=== PATIENT | female | born 1945 | race Caucasian/White ===

== ENCOUNTER 2020-05-17 07:24 | Emergency (ER) | payer MEDICARE, OTHER ==
--- NOTE | 2020-05-17 07:52 | EDM.PDOC ---
ED HPI GENERAL MEDICAL PROBLEM - General Chief Complaint: Cardiovascular Problem Stated Complaint: SENT FROM [facility] Time Seen by Provider: 05/17/20 07:35 Source of Information: Reports: Patient, RN Notes Reviewed - History of Present Illness INITIAL COMMENTS - FREE TEXT/NARRATIVE: 74 yr old female that dropped her BP getting a lexiscan. She dropped her BP down to the 70's systolic shortly after injection and than 1 reading down to the 60's. No report of arrrythmia. No chest pain. She did get mildly short of breath. No 20 minutes later she feels back to normal and BP is back to the teens systolic. She does have hx of CAD with ME about 1 yr ago. She is on meds for Htn, did take them already this morning. Has not had anything to eat and very little fluid intake. - Related Data Allergies Allergy/AdvReac Type Severity Reaction Status Date / Time Penicillins Allergy Intermediate Difficulty Verified 05/17/20 07:31 Swallowing Past Medical History HEENT History: Reports: Impaired Vision - Past Surgical History Other HEENT Surgeries/Procedures: wears glasses Social & Family History - Tobacco Use Tobacco Use Status *Q: Never Tobacco User ED ROS GENERAL - Review of Systems Review Of Systems: See Below Constitutional: Denies: Fever, Chills, Diaphoresis HEENT: Reports: No Symptoms Respiratory: Denies: Shortness of Breath Cardiovascular: Denies: Chest Pain GI/Abdominal: Denies: Abdominal Pain, Nausea, Vomiting Musculoskeletal: Denies: Neck Pain, Shoulder Pain, Arm Pain Skin: Reports: No Symptoms Neurological: Reports: Dizziness (gone) ED EXAM, GENERAL - Physical Exam Exam: See Below Exam Limited By: No Limitations General Appearance: Alert, No Apparent Distress Head: Atraumatic Neck: Supple Respiratory/Chest: No Respiratory Distress, Lungs Clear, Normal Breath Sounds Cardiovascular: Regular Rate, Rhythm GI/Abdominal: Soft, Non-Tender. No: Guarding Extremities: Normal Inspection, Normal Range of Motion. No: Pedal Edema, Leg Pain, Increased Warmth, Redness Neurological: Alert, Oriented, No Motor/Sensory Deficits Skin Exam: Warm, Dry, Normal Color #1 Interpretation EKG Date: 05/17/20 Rhythm: NSR Rate (Beats/Min): 77 [place]: Normal P-Wave: Present QRS: Normal ST-T: Normal QT: Normal Course - Vital Signs Last Recorded V/S: Last Vital Signs Temp 97.8 F 05/17/20 07:27 Pulse 82 05/17/20 07:46 Resp 20 05/17/20 07:46 BP 141/64 H 05/17/20 07:46 Pulse Ox 98 05/17/20 07:46 - Orders/Labs/Meds Orders: Active Orders 24 hr Category Date Time Status EKG 12 Lead [EKG Documentation Completion] [RC] STAT Care 05/17/20 07:50 Active Labs: Laboratory Tests 05/17/20 05/17/20 Range/Units 07:50 07:50 WBC 7.15 (3.98-10.04) K/mm3 RBC 3.38 L (3.98-5.22) M/mm3 Hgb 10.3 L (11.2-15.7) gm/dl Hct 33.0 L (34.1-44.9) % MCV 97.6 H (79.4-94.8) fl MCH 30.5 (25.6-32.2) pg MCHC 31.2 L (32.2-35.5) g/dl RDW Std Deviation 48.0 H (36.4-46.3) fL Plt Count 322 (182-369) K/mm3 MPV 8.7 L (9.4-12.3) fl Neut % (Auto) 65.4 (34.0-71.1) % Lymph % (Auto) 19.6 (19.3-51.7) % [place] % (Auto) 9.5 (4.7-12.5) % Eos % (Auto) 4.5 (0.7-5.8) Baso % (Auto) 0.7 (0.1-1.2) % Neut # (Auto) 4.68 (1.56-6.13) K/mm3 Lymph # (Auto) 1.40 (1.18-3.74) K/mm3 [place] # (Auto) 0.68 H (0.24-0.36) K/mm3 Eos # (Auto) 0.32 (0.04-0.36) K/mm3 Baso # (Auto) 0.05 (0.01-0.08) K/mm3 Sodium 139 (136-145) mEq/L Potassium 4.3 (3.5-5.1) mEq/L Chloride 103 (98-107) mEq/L Carbon Dioxide 26 (21-32) mEq/L Anion Gap 14.3 (5-15) BUN 23 H (7-18) mg/dL Creatinine 1.2 H (0.55-1.02) mg/dL Est Cr Clr Drug Dosing 36.05 mL/min Estimated GFR (MDRD) 44 (>60) mL/min BUN/Creatinine Ratio 19.2 H (14-18) Glucose 97 (83-115) mg/dL Calcium 9.0 (8.5-10.1) mg/dL Total Bilirubin 0.3 (0.2-1.0) mg/dL AST 20 (15-37) U/L ALT 27 (14-59) U/L Alkaline Phosphatase 81 (46-116) U/L Total Protein 6.4 (6.4-8.2) g/dl Albumin 3.4 (3.4-5.0) g/dl Globulin 3.0 gm/dL Albumin/Globulin Ratio 1.1 (1-2) - Re-Assessments/Exams Free Text/Narrative Re-Assessment/Exam: 05/17/20 08:56 BP now in the 140's. She has been drinking water. She continues to have no further sx. Hgb 10.3. No sure if she has hx of anemia. She states "my daughter is a doctor", will follow up with her. Discharge instr. as documented. Departure - Departure Time of Disposition: 08:49 Disposition: Home, Self-Care 01 Condition: Fair Clinical Impression: Hypotension after procedure Anemia Qualifiers: Anemia type: unspecified type Qualified Code(s): D64.9 - Anemia, unspecified Instructions: Hypotension, [id number] Referrals: Carolina Iniguez NP [Primary Care Provider] - Forms: ED Department Discharge Additional Instructions: Continue current medications. Your EKG as normal. Your Hbg was somewhat low at 10.3. The remainder of your labs were all relatively normal. Discuss you mild anemia with your regular provider. Follow up with your Room Service Food [employer] as planned. Sepsis Event Note (ED) - Evaluation Sepsis Screening Result: No Definite Risk - Focused Exam Vital Signs: Vital Signs Temp Pulse Resp BP Pulse Ox 05/17/20 07:46 82 20 141/64 H 98 05/17/20 07:27 97.8 F 88 16 118/68 98 - My Orders Last 24 Hours: My Active Orders 05/17/20 07:50 EKG 12 Lead [EKG Documentation Completion] [RC] STAT - Assessment/Plan Last 24 Hours: My Active Orders 05/17/20 07:50 EKG 12 Lead [EKG Documentation Completion] [RC] STAT
== END 2020-05-17 08:56 | disposition home or self-care (01) ==
LOC: JD.ED 07:24
DX: I95.81 Postprocedural hypotension (principal); D64.9 Anemia, unspecified; R06.02 Shortness of breath; I25.10 Atherosclerotic heart disease of native coronary artery without angina pectoris; I25.2 Old myocardial infarction; Z88.0 Allergy status to penicillin; I21.4 Non-ST elevation (NSTEMI) myocardial infarction
CPT/HCPCS: 36415; 78452; 80053; 85025; 93005; 93017; 99285; A9500; J2785; 93010; 99283

== ENCOUNTER 2020-09-18 12:13 | Observation (INO) | payer MEDICARE, OTHER ==
--- NOTE | 2020-09-18 12:31 | EDM.PDOC ---
ED HPI GENERAL MEDICAL PROBLEM - General Chief Complaint: Lower Extremity Injury/Pain Stated Complaint: INFECTED WOUND-RT LEG Time Seen by Provider: 09/18/20 12:31 Source of Information: Reports: Patient, RN Notes Reviewed - History of Present Illness INITIAL COMMENTS - FREE TEXT/NARRATIVE: 75 yr female has been sent here from [place] with concern about infected R lower leg. She scraped her leg on a metal picnic stable brace about a week ago with deep abrasion adn skin flap laceration. She states it has had drainage for many days, has been watching, waiting for it to get better but has been getting much worse with worsening drainage, swelling, localized erythema that has been spreading. No fever or chills. She is not diabetic. Right Lower Leg Pain Score (Numeric/FACES): 9 - Related Data Allergies Allergy/AdvReac Type Severity Reaction Status Date / Time Penicillins Allergy Intermediate Difficulty Verified 09/18/20 15:18 Swallowing Home Meds: Home Meds Aspirin 81 mg PO DAILY 09/18/20 [History] Calcium Citrate/Vitamin D3 [Calcium Citrate - Vit D Caplet] 1 each PO TID 0 09/18/20 [History] Divalproex Sodium [Depakote ER] 250 mg PO DAILY 09/18/20 [History] Folic Acid 1 mg PO DAILY 09/18/20 [History] Furosemide [Lasix] 10 mg PO DAILY 09/18/20 [History] LORazepam [Ativan] 0.5 mg PO DAILY 09/18/20 [History] Levothyroxine [Synthroid] 100 mcg PO ACBREAKFAST 09/18/20 [History] Magnesium Oxide [Magnesium] 400 mg PO DAILY 09/18/20 [History] Meloxicam 15 mg PO DAILY 09/18/20 [History] Metoprolol Succinate 50 mg PO DAILY 09/18/20 [History] Omeprazole 20 mg PO BID 09/18/20 [History] amLODIPine [Norvasc] 5 mg PO DAILY 09/18/20 [History] atorvaSTATin [Lipitor] 80 mg PO BEDTIME 09/18/20 [History] Divalproex Sodium [Depakote] 250 mg PO DAILY 09/19/20 [History] clindamycin HCL [Cleocin HCl] 450 mg PO TID #72 capsule 09/19/20 [Rx] Past Medical History HEENT History: Reports: Impaired Vision - Past Surgical History Other HEENT Surgeries/Procedures: wears glasses Review of Systems - Review of Systems Review Of Systems: See Below Constitutional: Denies: Chills, Fever Mouth/Throat: Reports: No Symptoms Respiratory: Denies: Shortness of Breath Cardiovascular: Denies: Chest Pain GI/Abdominal: Denies: Abdominal Pain, Nausea Musculoskeletal: Reports: Leg Pain Skin: Reports: Erythema Neurological: Denies: Numbness, Tingling, Weakness ED EXAM, GENERAL - Physical Exam Exam: See Below General Appearance: Alert, No Apparent Distress Eye Exam: Bilateral Eye: PERRL Throat/Mouth: Normal Inspection Head: Atraumatic Neck: Supple Respiratory/Chest: No Respiratory Distress, Lungs Clear, Normal Breath Sounds Cardiovascular: Regular Rate, Rhythm GI/Abdominal: Soft, Non-Tender Extremities: Other (open infected wound L lower ant. leg with purulent drainage present. Surrounding warmth, erythema,tenderness lower leg, ankle, and proximal foot) Course - Vital Signs Last Recorded V/S: Last Vital Signs Temp 97.5 F 09/19/20 07:38 Pulse 71 09/19/20 08:33 Resp 20 09/19/20 07:38 BP 141/64 H 09/19/20 08:33 Pulse Ox 93 L 09/19/20 07:38 - Orders/Labs/Meds Labs: Laboratory Tests 09/18/20 09/18/20 09/18/20 Range/Units 12:55 12:55 12:55 WBC 9.07 (3.98-10.04) K/mm3 RBC 3.38 L (3.98-5.22) M/mm3 Hgb 10.9 L (11.2-15.7) gm/dl Hct 32.6 L (34.1-44.9) % MCV 96.4 H (79.4-94.8) fl MCH 32.2 (25.6-32.2) pg MCHC 33.4 (32.2-35.5) g/dl RDW Std Deviation 45.1 (36.4-46.3) fL Plt Count 318 (182-369) K/mm3 MPV 9.0 L (9.4-12.3) fl Neut % (Auto) 70.2 (34.0-71.1) % Lymph % (Auto) 13.8 L (19.3-51.7) % [place] % (Auto) 10.7 (4.7-12.5) % Eos % (Auto) 4.7 (0.7-5.8) Baso % (Auto) 0.6 (0.1-1.2) % Neut # (Auto) 6.37 H (1.56-6.13) K/mm3 Lymph # (Auto) 1.25 (1.18-3.74) K/mm3 [place] # (Auto) 0.97 H (0.24-0.36) K/mm3 Eos # (Auto) 0.43 H (0.04-0.36) K/mm3 Baso # (Auto) 0.05 (0.01-0.08) K/mm3 Manual Slide Review Abnormal smear Sodium 133 L (136-145) mEq/L Potassium 4.8 (3.5-5.1) mEq/L Chloride 97 L (98-107) mEq/L Carbon Dioxide 28 (21-32) mEq/L Anion Gap 12.8 (5-15) BUN 21 H (7-18) mg/dL Creatinine 1.5 H (0.55-1.02) mg/dL Est Cr Clr Drug Dosing 27.22 mL/min Estimated GFR (MDRD) 34 (>60) mL/min BUN/Creatinine Ratio 14.0 (14-18) Glucose 95 (70-99) mg/dL Calcium 9.4 (8.5-10.1) mg/dL Total Bilirubin 0.3 (0.2-1.0) mg/dL AST 28 (15-37) U/L ALT 30 (14-59) U/L Alkaline Phosphatase 83 (46-116) U/L C-Reactive Protein 3.2 H* (<1.0) mg/dL Total Protein 7.2 (6.4-8.2) g/dl Albumin 3.7 (3.4-5.0) g/dl Globulin 3.5 gm/dL Albumin/Globulin Ratio 1.1 (1-2) Meds: Medications Discontinued Medications Generic Name Dose Route Start Last Admin Trade Name Freq PRN Reason Stop Dose Admin Acetaminophen 650 mg 09/18/20 15:45 09/18/20 20:27 Acetaminophen 325 Mg Tab PO 650 mg Q4H PRN Administration Pain (Mild 1-3)/fever Amlodipine Besylate 5 mg 09/19/20 09:00 09/19/20 08:33 Amlodipine 5 Mg Tab PO 5 mg DAILY JEREMY Administration Aspirin 81 mg 09/19/20 09:00 09/19/20 08:32 Aspirin 81 Mg Tab.Ec PO 81 mg DAILY JEREMY Administration Bupivacaine HCl/Epinephrine Bitart Confirm 09/18/20 13:59 09/18/20 14:17 Bupivacaine 0.5%/Epinephrine 1:200,000 50 Ml Mdv Administered 09/18/20 14:00 20 ml Dose Administration 50 ml .ROUTE .STK-MED ONE Calcium Carbonate 1 tab 09/19/20 07:00 09/19/20 06:37 Calcium Carbonate/Vitamin D3 600 Mg-200 Units Tab PO Not Given TIDMEALS JEREMY Divalproex Sodium 250 mg 09/19/20 09:00 09/19/20 08:33 Divalproex Sodium Delayed-Release 250 Mg Tab.Cr PO 250 mg DAILY JEREMY Administration Docusate Sodium 100 mg 09/18/20 15:45 Docusate Sodium 100 Mg Cap PO Q12H PRN Constipation Fentanyl Confirm 09/18/20 13:55 Fentanyl 100 Mcg/2 Ml Sdv Administered 09/18/20 13:56 Dose 100 mcg .ROUTE .STK-MED ONE Folic Acid 1 mg 09/19/20 09:00 09/19/20 08:33 Folic Acid 1 Mg Tab PO 1 mg DAILY [facility] Administration Furosemide 10 mg 09/19/20 09:00 09/19/20 08:32 Furosemide 20 Mg Tab PO 10 mg DAILY JEREMY Administration Vancomycin HCl 1 gm/ 250 mls @ 166.667 mls/hr 09/18/20 13:45 09/18/20 13:45 Vancomycin HCl 250 mg/ Sodium IV 09/18/20 15:14 166.667 mls/hr Chloride ONETIME ONE Administration Lidocaine HCl Confirm 09/18/20 13:55 Xylocaine-Mpf 1% Administered 09/18/20 13:56 Dose 4 mls @ as directed .ROUTE .STK-MED ONE Vancomycin HCl 1 gm/ Sodium 250 mls @ 250 mls/hr 09/20/20 14:00 Chloride IV Q48H JEREMY Sodium Chloride 1,000 mls @ 75 mls/hr 09/18/20 17:00 09/18/20 23:50 Normal Saline IV 09/19/20 06:19 75 mls/hr ASDIRECTED JEREMY Administration Levothyroxine Sodium 100 mcg 09/19/20 06:00 09/19/20 06:37 Levothyroxine 100 Mcg Tab PO Not Given ACBREAKFAST JEREMY Lorazepam 0.5 mg 09/19/20 09:00 09/19/20 08:33 Lorazepam 0.5 Mg Tab PO 0.5 mg DAILY JEREMY Administration Magnesium Oxide 400 mg 09/19/20 09:00 09/19/20 08:33 Magnesium Oxide 400 Mg Tab PO 400 mg DAILY JEREMY Administration Meloxicam 15 mg 09/19/20 09:00 09/19/20 08:33 Meloxicam 7.5 Mg Tab PO 15 mg DAILY JEREMY Administration Metoprolol Succinate 50 mg 09/19/20 09:00 09/19/20 08:33 Metoprolol Succinate 50 Mg Tab.Er PO 50 mg DAILY JEREMY Administration Midazolam HCl Confirm 09/18/20 13:55 Midazolam 1 Mg/Ml 2 Ml Sdv Administered 09/18/20 13:56 Dose 2 mg .ROUTE .STK-MED ONE Ondansetron HCl Confirm 09/18/20 13:55 Ondansetron 4 Mg/2 Ml Sdv Administered 09/18/20 13:56 Dose 4 mg .ROUTE .STK-MED ONE Ondansetron HCl 4 mg 09/18/20 15:45 Ondansetron 4 Mg/2 Ml Sdv IV Q6H PRN Nausea/Vomiting Pantoprazole Sodium 40 mg 09/19/20 06:00 09/19/20 06:35 Pantoprazole 40 Mg Tab.Cr PO Not Given BIDAC JEREMY Propofol Confirm 09/18/20 13:55 Propofol 200 Mg/20 Ml Sdv Administered 09/18/20 13:56 Dose 200 mg .ROUTE .STK-MED ONE Rosuvastatin Calcium 20 mg 09/19/20 21:00 Rosuvastatin 10 Mg Tab PO BEDTIME JREEMY Sodium Chloride 10 ml 09/18/20 12:45 09/18/20 13:04 Sodium Chloride 0.9% 10 Ml Syringe FLUSH 10 ml ASDIRECTED PRN Administration Keep Vein Open Vancomycin HCl 0 dose 09/18/20 16:00 Pharmacy To Dose - Vancomycin .XX ASDIRECTED PRN RX TO DOSE VANCOMYCIN - Re-Assessments/Exams Free Text/Narrative Re-Assessment/Exam: 09/18/20 14:56 WBC normal, CRP 3.2. Have consulted Dr Mathew, General Surgeon sales representative education courses. He has taken patient to OR for debridement. She will than be admitted to Hospitalist service. IV Vancomycin ordered and given. Departure - Departure Time of Disposition: 13:10 Disposition: Admitted As Inpatient 67 Condition: Serious Clinical Impression: Cellulitis Qualifiers: Site of cellulitis: extremity Site of cellulitis of extremity: lower extremity Laterality: right Qualified Code(s): L03.115 - Cellulitis of right lower limb Open leg wound Qualifiers: Encounter type: initial encounter Laterality: right Qualified Code(s): S81.801A - Unspecified open wound, right lower leg, initial encounter - Discharge Information ED Communication - Discussed Case With (1) Discussed Case With (1): Admitting Provider (Dr Zaidi, decision to admit at around 1500.)
[2020-09-18] MEDS ORDERED: Sodium Chloride 0.9% 10 ML Syringe FLUSH PRN (12:45)
--- NOTE | 2020-09-18 13:11 | PCM.CONS ---
H&P History of Present Illness - General Date of Service: 09/18/20 Source of Information: Patient History Limitations: Reports: No Limitations - History of Present Illness Initial Comments - Free Text/Narative: Patient scraped her leg 10 days ago. she did well at home but the past few days the wound has been getting more red and oozy. No fevers and chills. She went to the ED at [place] where she was found to need debridement. Onset of Symptoms: Reports: Gradual Duration of Symptoms: Reports: Day(s): (3) Location: Reports: Other (right wolfe) Severity: Moderate Improves with: Reports: None Worsens with: Reports: None Right Lower Leg Pain Score (Numeric/FACES): 9 - Related Data Allergies/Adverse Reactions: Allergies Allergy/AdvReac Type Severity Reaction Status Date / Time Penicillins Allergy Intermediate Difficulty Verified 09/18/20 12:19 Swallowing Home Medications: Home Meds Aspirin 81 mg PO DAILY 09/18/20 [History] Calcium Citrate/Vitamin D3 [Calcium Citrate - Vit D Caplet] 1 each PO DAILY 09/18/20 [History] Cholecalciferol (Vitamin D3) [Vitamin D3] 1,000 unit PO DAILY 09/18/20 [History] Divalproex Sodium [Depakote ER] 250 mg PO DAILY 09/18/20 [History] Folic Acid 1 mg PO DAILY 09/18/20 [History] Furosemide [Lasix] 10 mg PO DAILY 09/18/20 [History] LORazepam [Ativan] 0.5 mg PO DAILY 09/18/20 [History] Levothyroxine [Synthroid] 100 mcg PO ACBREAKFAST 09/18/20 [History] Magnesium Oxide [Magnesium] 400 mg PO DAILY 09/18/20 [History] Meloxicam 15 mg PO DAILY 09/18/20 [History] Metoprolol Succinate 50 mg PO DAILY 09/18/20 [History] Omeprazole 20 mg PO DAILY 09/18/20 [History] amLODIPine [Norvasc] 5 mg PO DAILY 09/18/20 [History] atorvaSTATin [Lipitor] 80 mg PO BEDTIME 09/18/20 [History] Past Medical History HEENT History: Reports: Impaired Vision Cardiovascular History: Reports: High Cholesterol, Hypertension Respiratory History: Reports: None Gastrointestinal History: Reports: GERD Genitourinary History: Reports: Chronic Renal Insuffiency 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: Musculoskeletal History: Reports: Arthritis Neurological History: Reports: None Psychiatric History: Reports: Anxiety Endocrine/Metabolic History: Reports: None Hematologic History: Reports: None Immunologic History: Reports: None Oncologic (Cancer) History: Reports: None Dermatologic History: Reports: Other (See Below) Other Dermatologic History: thin skin - Infectious Disease History Infectious Disease History: Reports: Chicken Pox, Measles, Novel Coronavirus - Past Surgical History Head Surgeries/Procedures: Reports: None Other HEENT Surgeries/Procedures: wears glasses Female Surgical History: Reports: Hysterectomy Social & Family History - Family History Family Medical History: No Pertinent Family History - Tobacco Use Tobacco Use Status *Q: Former Tobacco User Used Tobacco, but Quit: Yes Month/Year Tobacco Last Used: 03/2016 - Caffeine Use Caffeine Use: Reports: Coffee - Recreational Drug Use Recreational Drug Use: No H&P Review of Systems - Review of Systems: Review Of Systems: See Below General: Reports: No Symptoms HEENT: Reports: No Symptoms Pulmonary: Reports: No Symptoms Cardiovascular: Reports: No Symptoms Gastrointestinal: Reports: No Symptoms Genitourinary: Reports: No Symptoms Musculoskeletal: Reports: No Symptoms Skin: Reports: Other (right wolfe wound) Exam - Exam Exam: See Below (right anterior lower leg wound with scab. has surrounding erythema and induration. no fluctation.) - Vital Signs Vital Signs: Last Vital Signs Temp 97.6 F 09/18/20 12:30 Pulse 70 09/18/20 12:30 Resp 18 09/18/20 12:30 BP 143/99 H 09/18/20 12:30 Pulse Ox 97 09/18/20 12:30 Weight: 67.993 kg - Exam General: Alert, Oriented, Cooperative Lungs: Clear to Auscultation, Normal Respiratory Effort Cardiovascular: Regular Rate, Regular Rhythm Skin: Wound Sepsis Event Note - Evaluation Sepsis Screening Result: No Definite Risk - Focused Exam Vital Signs: Vital Signs Temp Pulse Resp BP Pulse Ox 09/18/20 12:30 97.6 F 70 18 143/99 H 97 Consult PN Assessment/Plan Procedures: Procedures CARDIOVASCULAR STRESS TEST (05/17/20) COMPLETE CBC W/AUTO DIFF WBC (05/17/20) COMPREHEN METABOLIC PANEL (05/17/20) ELECTROCARDIOGRAM TRACING (05/17/20) EMERGENCY DEPT VISIT (05/17/20) HT MUSCLE IMAGE SPECT MULT (05/17/20) ROUTINE VENIPUNCTURE (05/17/20) Problem List Initiated/Reviewed/Updated: No Plan: Patient has infected and dirty right wolfe wound. I recommended debridement - either surgical or non-surgical. Patient opted for surgical debridement. We discussed risks, benefits and alternatives and informed consent was obtained.
[2020-09-18] MEDS ORDERED: Vancomycin 1.25 GM in Sodium Chloride 0.9% 500 ML IV ONE (13:12)
[2020-09-18] MEDS ORDERED: Vancomycin 1 GM, Vancomycin 250 MG in Sodium Chloride 0.9% 250 ML IV ONE (13:45)
--- NOTE | 2020-09-18 13:49 | PCM.PREANE ---
Preanesthetic Assessment - Procedure Proposed Procedure: I&D ulcer right leg - Anesthesia/Transfusion/Family Hx Anesthesia History: Prior Anesthesia Without Reaction Family History of Anesthesia Reaction: No Transfusion History: Prior Transfusion Without Reaction - Review of Systems General: No Symptoms Pulmonary: No Symptoms Cardiovascular: Dyspnea on Exertion Gastrointestinal: No Symptoms Neurological: No Symptoms Other: Reports: Easy Bruising, Thyroid Problems (hypothyroid), Anxiety - Physical Assessment NPO Status Date: 09/18/20 NPO Status Time: 08:00 Vital Signs: Last Vital Signs Temp 36.4 C 09/18/20 12:30 Pulse 70 09/18/20 12:30 Resp 18 09/18/20 12:30 BP 143/99 H 09/18/20 12:30 Pulse Ox 97 09/18/20 12:30 Height: 1.6 m Weight: 67.993 kg ASA Class: 3 Mental Status: Alert & Oriented x3 Airway Class: Mallampati = 1 Dentition: Reports: [place](s) Thyro-Mental Finger Breadths: 2 Mouth Opening Finger Breadths: 2 ROM/Head Extension: Limited/Partial Lungs: Clear to Auscultation, Normal Respiratory Effort Cardiovascular: Regular Rate, Regular Rhythm, Murmurs - Lab Values: Laboratory Last Values WBC 9.07 K/mm3 (3.98-10.04) 09/18/20 12:55 RBC 3.38 M/mm3 (3.98-5.22) L 09/18/20 12:55 Hgb 10.9 gm/dl (11.2-15.7) L 09/18/20 12:55 Hct 32.6 % (34.1-44.9) L 09/18/20 12:55 MCV 96.4 fl (79.4-94.8) H 09/18/20 12:55 MCH 32.2 pg (25.6-32.2) 09/18/20 12:55 MCHC 33.4 g/dl (32.2-35.5) 09/18/20 12:55 RDW Std Deviation 45.1 fL (36.4-46.3) 09/18/20 12:55 Plt Count 318 K/mm3 (182-369) 09/18/20 12:55 MPV 9.0 fl (9.4-12.3) L 09/18/20 12:55 Neut % (Auto) 70.2 % (34.0-71.1) 09/18/20 12:55 Lymph % (Auto) 13.8 % (19.3-51.7) L 09/18/20 12:55 [place] % (Auto) 10.7 % (4.7-12.5) 09/18/20 12:55 Eos % (Auto) 4.7 (0.7-5.8) 09/18/20 12:55 Baso % (Auto) 0.6 % (0.1-1.2) 09/18/20 12:55 Neut # (Auto) 6.37 K/mm3 (1.56-6.13) H 09/18/20 12:55 Lymph # (Auto) 1.25 K/mm3 (1.18-3.74) 09/18/20 12:55 [place] # (Auto) 0.97 K/mm3 (0.24-0.36) H 09/18/20 12:55 Eos # (Auto) 0.43 K/mm3 (0.04-0.36) H 09/18/20 12:55 Baso # (Auto) 0.05 K/mm3 (0.01-0.08) 09/18/20 12:55 Sodium 133 mEq/L (136-145) L 09/18/20 12:55 Potassium 4.8 mEq/L (3.5-5.1) 09/18/20 12:55 Chloride 97 mEq/L (98-107) L 09/18/20 12:55 Carbon Dioxide 28 mEq/L (21-32) 09/18/20 12:55 Anion Gap 12.8 (5-15) 09/18/20 12:55 BUN 21 mg/dL (7-18) H 09/18/20 12:55 Creatinine 1.5 mg/dL (0.55-1.02) H 09/18/20 12:55 Est Cr Clr Drug Dosing 27.22 mL/min 09/18/20 12:55 Estimated GFR (MDRD) 34 mL/min (>60) 09/18/20 12:55 BUN/Creatinine Ratio 14.0 (14-18) 09/18/20 12:55 Glucose 95 mg/dL (70-99) 09/18/20 12:55 Calcium 9.4 mg/dL (8.5-10.1) 09/18/20 12:55 Total Bilirubin 0.3 mg/dL (0.2-1.0) 09/18/20 12:55 AST 28 U/L (15-37) 09/18/20 12:55 ALT 30 U/L (14-59) 09/18/20 12:55 Alkaline Phosphatase 83 U/L (46-116) 09/18/20 12:55 Total Protein 7.2 g/dl (6.4-8.2) 09/18/20 12:55 Albumin 3.7 g/dl (3.4-5.0) 09/18/20 12:55 Globulin 3.5 gm/dL 09/18/20 12:55 Albumin/Globulin Ratio 1.1 (1-2) 09/18/20 12:55 - Allergies Allergies/Adverse Reactions: Allergies Allergy/AdvReac Type Severity Reaction Status Date / Time Penicillins Allergy Intermediate Difficulty Verified 09/18/20 12:19 Swallowing - Blood Blood Available: No Product(s) Available: None - Anesthesia Plan Pre-Op Medication Ordered: Beta Rowena Beta Rowena: Metoprolol Med Last Dose Date: 09/18/20 Med Last Dose Time: 08:00 - Acknowledgements Anesthesia Type Planned: MAC Pt an Appropriate Candidate for the Planned Anesthesia: Yes Alternatives and Risks of Anesthesia Discussed w Pt/Guardian: Yes Pt/Guardian Understands and Agrees with Anesthesia Plan: Yes PreAnesthesia Questionnaire HEENT History: Reports: Impaired Vision Cardiovascular History: Reports: High Cholesterol, Hypertension Respiratory History: Reports: None Gastrointestinal History: Reports: GERD Genitourinary History: Reports: Chronic Renal Insuffiency [employer]NA[employer] History: Reports: Musculoskeletal History: Reports: Arthritis Neurological History: Reports: None Psychiatric History: Reports: Anxiety Endocrine/Metabolic History: Reports: None Hematologic History: Reports: None Immunologic History: Reports: None Oncologic (Cancer) History: Reports: None Dermatologic History: Reports: Other (See Below) Other Dermatologic History: thin skin - Infectious Disease History Infectious Disease History: Reports: Chicken Pox, Measles, Novel Coronavirus - Past Surgical History Head Surgeries/Procedures: Reports: None Other HEENT Surgeries/Procedures: wears glasses Female Surgical History: Reports: Hysterectomy - SUBSTANCE USE Tobacco Use Status *Q: Former Tobacco User Tobacco Use Within Last Twelve Months: Cigarettes Second Hand Smoke Exposure: No Days Per Week of Alcohol Use: 0 Number of Drinks Per Day: 0 Total Drinks Per Week: 0 Recreational Drug Use History: No - HOME MEDS Home Medications: Home Meds Aspirin 81 mg PO DAILY 09/18/20 [History] Calcium Citrate/Vitamin D3 [Calcium Citrate - Vit D Caplet] 1 each PO DAILY 09/18/20 [History] Cholecalciferol (Vitamin D3) [Vitamin D3] 1,000 unit PO DAILY 09/18/20 [History] Divalproex Sodium [Depakote ER] 250 mg PO DAILY 09/18/20 [History] Folic Acid 1 mg PO DAILY 09/18/20 [History] Furosemide [Lasix] 10 mg PO DAILY 09/18/20 [History] LORazepam [Ativan] 0.5 mg PO DAILY 09/18/20 [History] Levothyroxine [Synthroid] 100 mcg PO ACBREAKFAST 09/18/20 [History] Magnesium Oxide [Magnesium] 400 mg PO DAILY 09/18/20 [History] Meloxicam 15 mg PO DAILY 09/18/20 [History] Metoprolol Succinate 50 mg PO DAILY 09/18/20 [History] Omeprazole 20 mg PO DAILY 09/18/20 [History] amLODIPine [Norvasc] 5 mg PO DAILY 09/18/20 [History] atorvaSTATin [Lipitor] 80 mg PO BEDTIME 09/18/20 [History] - CURRENT (IN HOUSE) MEDS Current Meds: Current Medications Vancomycin HCl 1 gm/Vancomycin HCl 250 mg/ Sodium Chloride 250 mls @ 166.667 mls/hr IV ONETIME ONE Stop: 09/18/20 15:14 Sodium Chloride (Sodium Chloride 0.9% 10 Ml Syringe) 10 ml FLUSH ASDIRECTED PRN PRN Reason: Keep Vein Open Last Admin: 09/18/20 13:04 Dose: 10 ml Documented by:
[2020-09-18] MEDS ORDERED: Propofol 200 MG/20 ML SDV ONE (13:55)
[2020-09-18] MEDS ORDERED: Midazolam 1 MG/ML 2 ML SDV ONE (13:55)
[2020-09-18] MEDS ORDERED: Lidocaine 1% 4 ML ONE (13:55)
[2020-09-18] MEDS ORDERED: fentaNYL 100 MCG/2 ML SDV ONE (13:55)
[2020-09-18] MEDS ORDERED: Ondansetron 4 MG/2 ML SDV ONE (13:55)
[2020-09-18] MEDS ORDERED: Bupivacaine 0.5%/EPINEPHrine 1:200,000 50 ML MDV ONE (13:59)
--- NOTE | 2020-09-18 14:43 | PCM.HP.2 ---
<Jaret Cherry - Last Filed: 09/18/20 16:48> H&P History of Present Illness - General Date of Service: 09/18/20 Admit Problem/Dx: Admission Diagnosis/Problem Admission Diagnosis/Problem Wound of lower extremity - History of Present Illness Initial Comments - Free Text/Narative: This is a 35-year-old female who presents to ED on 09-18-2020 with a infected right lower leg wound. Patient reports about a week ago she was sitting on a picnic table and when she went to get up her leg became twisted and it resulting in a skin tear and skin flap laceration. She reports she presented to the clinic in [place], who took a look at her leg and told her that she needs surgical debridement. She was therefore sent here. In our ED temp is 97.6. Pulse 70. Respirations 18. Blood pressure 143/99. Pulse ox 97% on room air. Labs are obtained with a WBC of 9.07. Hemoglobin 10.9. Platelet 318,000. Neutrophils are normal at 70.2. Sodium is 133. Potassium 4.8. Chloride 97. Carbon dioxide 28. Anion gap 12.8. BUN is 21. Creatinine 1.5. GFR is 34. Glucose is 95. Calcium 9.4. Total bilirubin 0.3. AST is 28, ALT 30, alkaline phosphatase 83. CRP is 3.2. Albumin is 3.7. She started on [address] Mathew, general surgeon, is consulted in the ED and it is decided the patient will be brought to the operating room for surgical debridement. During debridement no abscesses are noted. Wound is wrapped. Dr. Mathew requests twice daily wet-to-dry dressings. Patient is subsequently admitted observation status for continued IV antibiotics and wound care. She carries a history of HLD, HTN, GERD, arthritis, anxiety and CKD. She is a full code. Her PCP is Carolina Weathers NP. Right Lower Leg Pain Score (Numeric/FACES): 9 - Related Data Allergies/Adverse Reactions: Allergies Allergy/AdvReac Type Severity Reaction Status Date / Time Penicillins Allergy Intermediate Difficulty Verified 09/18/20 15:18 Swallowing Home Medications: Home Meds Aspirin 81 mg PO DAILY 09/18/20 [History] Calcium Citrate/Vitamin D3 [Calcium Citrate - Vit D Caplet] 1 each PO TID 09/18/20 [History] Divalproex Sodium [Depakote ER] 250 mg PO DAILY 09/18/20 [History] Folic Acid 1 mg PO DAILY 09/18/20 [History] Furosemide [Lasix] 10 mg PO DAILY 09/18/20 [History] LORazepam [Ativan] 0.5 mg PO DAILY 09/18/20 [History] Levothyroxine [Synthroid] 100 mcg PO ACBREAKFAST 09/18/20 [History] Magnesium Oxide [Magnesium] 400 mg PO DAILY 09/18/20 [History] Meloxicam 15 mg PO DAILY 09/18/20 [History] Metoprolol Succinate 50 mg PO DAILY 09/18/20 [History] Omeprazole 20 mg PO BID 09/18/20 [History] amLODIPine [Norvasc] 5 mg PO DAILY 09/18/20 [History] atorvaSTATin [Lipitor] 80 mg PO BEDTIME 09/18/20 [History] Divalproex Sodium [Depakote] 250 mg PO DAILY 09/19/20 [History] clindamycin HCL [Cleocin HCl] 450 mg PO TID #72 capsule 09/19/20 [Rx] Past Medical History HEENT History: Reports: Impaired Vision Cardiovascular History: Reports: High Cholesterol, Hypertension Respiratory History: Reports: None Gastrointestinal History: Reports: GERD Genitourinary History: Reports: Chronic Renal Insuffiency 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: Musculoskeletal History: Reports: Arthritis Neurological History: Reports: None Psychiatric History: Reports: Anxiety Endocrine/Metabolic History: Reports: None Hematologic History: Reports: None Immunologic History: Reports: None Oncologic (Cancer) History: Reports: None Dermatologic History: Reports: Other (See Below) Other Dermatologic History: thin skin - Infectious Disease History Infectious Disease History: Reports: Chicken Pox, Measles, Novel Coronavirus - Past Surgical History Head Surgeries/Procedures: Reports: None Other HEENT Surgeries/Procedures: wears glasses Female Surgical History: Reports: Hysterectomy Social & Family History - Family History Family Medical History: No Pertinent Family History - Tobacco Use Tobacco Use Status *Q: Former Tobacco User Used Tobacco, but Quit: Yes Month/Year Tobacco Last Used: 03/2016 Second Hand Smoke Exposure: No - Caffeine Use Caffeine Use: Reports: Coffee - Alcohol Use Days Per Week of Alcohol Use: 0 Number of Drinks Per Day: 0 Total Drinks Per Week: 0 - Recreational Drug Use Recreational Drug Use: No H&P Review of Systems - Review of Systems: Review Of Systems: See Below General: Reports: No Symptoms. Denies: Fever, Chills, Malaise, Weakness, Fatigue HEENT: Reports: No Symptoms. Denies: Headaches, Sore Throat Pulmonary: Reports: No Symptoms. Denies: Shortness of Breath, Wheezing, Pleuritic Chest Pain, Cough, Sputum Cardiovascular: Reports: No Symptoms. Denies: Chest Pain, Palpitations, Dyspnea on Exertion, Edema Gastrointestinal: Reports: No Symptoms. Denies: Abdominal Pain, Constipation, Diarrhea, Nausea, Vomiting Genitourinary: Reports: No Symptoms. Denies: Pain Musculoskeletal: Reports: No Symptoms Skin: Reports: Wound (Wound on right lower extremity) Psychiatric: Reports: No Symptoms. Denies: Confusion Neurological: Reports: No Symptoms. Denies: Confusion, Numbness, Pre-Existing Deficit, Tingling, Difficulty Walking, Weakness, Gait Disturbance Hematologic/Lymphatic: Reports: No Symptoms Immunologic: Reports: No Symptoms Exam - Exam Exam: See Below - Vital Signs Vital Signs: Last Vital Signs Temp 97.6 F 09/18/20 12:30 Pulse 70 09/18/20 12:30 Resp 18 09/18/20 12:30 BP 143/99 H 09/18/20 12:30 Pulse Ox 97 09/18/20 12:30 Weight: 67.993 kg - Exam Quality Assessment: DVT Prophylaxis. No: Supplemental Oxygen, Urinary Catheter General: Alert, Oriented, Cooperative. No: Mild Distress HEENT: Conjunctiva Clear, EACs Clear, Mucosa Moist & [place], Posterior Pharynx Clear Neck: Supple, Trachea Midline Lungs: Clear to Auscultation, Normal Respiratory Effort Cardiovascular: Regular Rate, Regular Rhythm GI/Abdominal Exam: Normal Bowel Sounds, Soft, Non-Tender, No Distention (Female) Exam: Deferred Rectal (Female) Exam: Deferred Extremities: Normal Range of Motion, No Pedal Edema, Leg Pain, Increased Warmth, Redness, Other (Approximately 7 cm x 3 cm wound on right anterior portion of lower extremity. Area is warm to touch and erythematous. Prior demarcation noted by [facility] with some improved redness. Area demarcated again in [place] locally.) Peripheral Pulses: 2+: Radial (L), Radial (R), Dorsalis Pedis (L), Dorsalis Pedis (R) Skin: Warm, Dry, Intact Neurological: Cranial Nerves Intact (Grossly ) Neuro Extensive - Mental Status: Alert, Oriented x3, Normal Mood/Affect - Patient Data Lab Results Last 24 hrs: Laboratory Results - last 24 hr 09/18/20 09/18/20 09/18/20 Range/Units 12:55 12:55 12:55 WBC 9.07 (3.98-10.04) K/mm3 RBC 3.38 L (3.98-5.22) M/mm3 Hgb 10.9 L (11.2-15.7) gm/dl Hct 32.6 L (34.1-44.9) % MCV 96.4 H (79.4-94.8) fl MCH 32.2 (25.6-32.2) pg MCHC 33.4 (32.2-35.5) g/dl RDW Std Deviation 45.1 (36.4-46.3) fL Plt Count 318 (182-369) K/mm3 MPV 9.0 L (9.4-12.3) fl Neut % (Auto) 70.2 (34.0-71.1) % Lymph % (Auto) 13.8 L (19.3-51.7) % [place] % (Auto) 10.7 (4.7-12.5) % Eos % (Auto) 4.7 (0.7-5.8) Baso % (Auto) 0.6 (0.1-1.2) % Neut # (Auto) 6.37 H (1.56-6.13) K/mm3 Lymph # (Auto) 1.25 (1.18-3.74) K/mm3 [place] # (Auto) 0.97 H (0.24-0.36) K/mm3 Eos # (Auto) 0.43 H (0.04-0.36) K/mm3 Baso # (Auto) 0.05 (0.01-0.08) K/mm3 Manual Slide Review Abnormal smear Sodium 133 L (136-145) mEq/L Potassium 4.8 (3.5-5.1) mEq/L Chloride 97 L (98-107) mEq/L Carbon Dioxide 28 (21-32) mEq/L Anion Gap 12.8 (5-15) BUN 21 H (7-18) mg/dL Creatinine 1.5 H (0.55-1.02) mg/dL Est Cr Clr Drug Dosing 27.22 mL/min Estimated GFR (MDRD) 34 (>60) mL/min BUN/Creatinine Ratio 14.0 (14-18) Glucose 95 (70-99) mg/dL Calcium 9.4 (8.5-10.1) mg/dL Total Bilirubin 0.3 (0.2-1.0) mg/dL AST 28 (15-37) U/L ALT 30 (14-59) U/L Alkaline Phosphatase 83 (46-116) U/L C-Reactive Protein 3.2 H* (<1.0) mg/dL Total Protein 7.2 (6.4-8.2) g/dl Albumin 3.7 (3.4-5.0) g/dl Globulin 3.5 gm/dL Albumin/Globulin Ratio 1.1 (1-2) Result Diagrams: 09/18/20 12:55 09/18/20 12:55 Sepsis Event Note - Evaluation Sepsis Screening Result: No Definite Risk - Focused Exam Vital Signs: Vital Signs Temp Pulse Resp BP Pulse Ox 09/18/20 12:30 97.6 F 70 18 143/99 H 97 - Problem List (1) S/P debridement SNOMED Code(s): 744118740, 396537402 ICD Code: Z98.890 - OTHER SPECIFIED POSTPROCEDURAL STATES Status: Acute Priority: High (2) HLD (hyperlipidemia) SNOMED Code(s): 92326376 ICD Code: E78.5 - HYPERLIPIDEMIA, UNSPECIFIED Status: Chronic Priority: Low Qualifiers: Hyperlipidemia type: unspecified Qualified Code(s): E78.5 - Hyperlipidemia, unspecified (3) HTN (hypertension) SNOMED Code(s): 79225237 ICD Code: I10 - ESSENTIAL (PRIMARY) HYPERTENSION Status: Chronic Priori ty: Medium Qualifiers: Hypertension type: unspecified Qualified Code(s): I10 - Essential (primary) hypertension (4) GERD (gastroesophageal reflux disease) SNOMED Code(s): 802897820 ICD Code: K21.9 - GASTRO-ESOPHAGEAL REFLUX DISEASE WITHOUT ESOPHAGITIS Status: Chronic Priority: Low Qualifiers: Esophagitis presence: esophagitis presence not specified Qualified Code(s): K21.9 - Gastro-esophageal reflux disease without esophagitis (5) CKD (chronic kidney disease) SNOMED Code(s): 536476007 ICD Code: N18.9 - CHRONIC KIDNEY DISEASE, UNSPECIFIED Status: Chronic Priority: Medium Qualifiers: Chronic kidney disease stage: stage 3 (moderate) Chronic kidney disease stage 3 subtype: stage 3b (GFR 30-44) Qualified Code(s): N18.32 - Chronic k idney disease, stage 3b (6) Arthritis SNOMED Code(s): 9843946 ICD Code: M19.90 - UNSPECIFIED OSTEOARTHRITIS, UNSPECIFIED SITE Status: Chronic Priority: Low (7) Anxiety SNOMED Code(s): 34474692 ICD Code: F41.9 - ANXIETY DISORDER, UNSPECIFIED Status: Chronic Priority: Low (8) Cellulitis SNOMED Code(s): 694792557 ICD Code: L03.90 - CELLULITIS, UNSPECIFIED Status: Acute Priority: High Qualifiers: Site of cellulitis: extremity Site of cellulitis of extremity: lower extr emity Laterality: right Qualified Code(s): L03.115 - Cellulitis of right lower limb (9) Open leg wound SNOMED Code(s): 09697725 ICD Code: S81.809A - UNSPECIFIED OPEN WOUND, UNSPECIFIED LOWER LEG, INIT ENCNTR Status: Acute Priority: High Qualifiers: Encounter type: initial encounter Laterality: right Qualified Code(s): S81.801A - Unspecified open wound, right lower leg, initial encounter Problem List Initiated/Reviewed/Updated: Yes Orders Last 24hrs: Active Orders 24 hr Category Date Time Status Patient Status [ADT] Routine ADT 09/18/20 13:48 Active Peripheral IV Care [RC] . DIRECTED Care 09/18/20 12:45 Active CULTURE, ANAEROBE & AEROBE [MREF] Routine Lab 09/18/20 14:25 Ordered Sodium Chloride 0.9% [Saline Flush] Med 09/18/20 12:45 Active 10 ml FLUSH ASDIRECTED PRN Vancomycin 1 gm Med 09/18/20 13:45 Active Vancomycin 250 mg Sodium Chloride 0.9% [Normal Saline] 250 ml IV ONETIME Peripheral IV Insertion Adult [OM.PC] Stat Oth 09/18/20 12:45 Ordered Schedule Procedure [COMM] Stat Oth 09/18/20 13:47 Ordered Medication Orders Vancomycin HCl 1 gm/Vancomycin HCl 250 mg/ Sodium Chloride 250 mls @ 166.667 mls/hr IV ONETIME ONE Stop: 09/18/20 15:14 Last Admin: 09/18/20 13:45 Dose: 166.667 mls/hr Documented by: PIOTR Sodium Chloride (Sodium Chloride 0.9% 10 Ml Syringe) 10 ml FLUSH ASDIRECTED PRN PRN Reason: Keep Vein Open Last Admin: 09/18/20 13:04 Dose: 10 ml Documented by: PIOTR Assessment/Plan Comment:: Assessment - Day of admission 09/18/2020 * 35-year-old female who presents to ED with a infected right lower leg wound. * History of HLD, HTN, GERD, arthritis, anxiety and CKD. * Reports about a week ago she was sitting on a picnic table and when she went to get up her leg became twisted and it resulting in a skin tear and skin flap laceration. * Presented to the clinic in [place], who took a look at her leg and told her that she needs surgical debridement; Sent here * Labs in ED: * WBC of 9.07. * Hemoglobin 10.9. * Platelet 318,000. * Neutrophils are normal at 70.2. * Sodium is 133. * Potassium 4.8. * Chloride 97. * Carbon dioxide 28. * Anion gap 12.8. * BUN is 21. Creatinine 1.5. GFR is 34. * Glucose is 95. * Calcium 9.4. * Total bilirubin 0.3. * AST is 28, ALT 30, alkaline phosphatase 83. * CRP is 3.2. * Albumin is 3.7. * She started on 1 g vancomycin * Dr. Mathew, general surgeon, is consulted in the ED- brought to the operating room for surgical debridement. * No abscesses are noted. * Wound is wrapped. * Dr. Mathew requests twice daily wet-to-dry dressings. * Admitted observation status for continued IV antibiotics and wound care. * No sepsis risk/concern PLAN: Cellulitis Open leg wound S/P debridement * Demarcate area with surgical marking pen * Continue Vancomycin started in ED * BID wet-to-dry dressing changes * Dressing education for patient * PT/OT * CM/SW consult for discharge panning * Wound culture pending HLD (hyperlipidemia) HTN (hypertension) GERD (gastroesophageal reflux disease) Arthritis Anxiety * No acute concerns * Continue home medications as ordered CKD (chronic kidney disease) * No acute cocners * Avoid nephrotoxic meds if able * IV fluids as ordered Code status: Full Code PCP: Carolina Weathers NP DVT prophylaxis: Consider heparin in AM Disposition: Admitted to medical floor observation status for management of cellulitis/leg wound status post debridement and continued IV antibiotics. Likely discharge in 1 to 2 days. - Mortality Measure Prognosis:: Good <DyanCarlos Manuel mcgarry - Last Filed: 09/19/20 12:18> H&P History of Present Illness - General Admit Problem/Dx: Admission Diagnosis/Problem Admission Diagnosis/Problem Wound of lower extremity Exam - Vital Signs Vital Signs: Last Vital Signs Temp 36.4 C 09/19/20 07:38 Pulse 71 09/19/20 08:33 Resp 20 09/19/20 07:38 BP 141/64 H 09/19/20 08:33 Pulse Ox 93 L 09/19/20 07:38 - Patient Data Lab Results Last 24 hrs: Laboratory Results - last 24 hr 09/18/20 09/18/20 09/18/20 Range/Units 12:55 12:55 12:55 WBC 9.07 (3.98-10.04) K/mm3 RBC 3.38 L (3.98-5.22) M/mm3 Hgb 10.9 L (11.2-15.7) gm/dl Hct 32.6 L (34.1-44.9) % MCV 96.4 H (79.4-94.8) fl MCH 32.2 (25.6-32.2) pg MCHC 33.4 (32.2-35.5) g/dl RDW Std Deviation 45.1 (36.4-46.3) fL Plt Count 318 (182-369) K/mm3 MPV 9.0 L (9.4-12.3) fl Neut % (Auto) 70.2 (34.0-71.1) % Lymph % (Auto) 13.8 L (19.3-51.7) % [place] % (Auto) 10.7 (4.7-12.5) % Eos % (Auto) 4.7 (0.7-5.8) Baso % (Auto) 0.6 (0.1-1.2) % Neut # (Auto) 6.37 H (1.56-6.13) K/mm3 Lymph # (Auto) 1.25 (1.18-3.74) K/mm3 [place] # (Auto) 0.97 H (0.24-0.36) K/mm3 Eos # (Auto) 0.43 H (0.04-0.36) K/mm3 Baso # (Auto) 0.05 (0.01-0.08) K/mm3 Manual Slide Review Abnormal smear Sodium 133 L (136-145) mEq/L Potassium 4.8 (3.5-5.1) mEq/L Chloride 97 L (98-107) mEq/L Carbon Dioxide 28 (21-32) mEq/L Anion Gap 12.8 (5-15) BUN 21 H (7-18) mg/dL Creatinine 1.5 H (0.55-1.02) mg/dL Est Cr Clr Drug Dosing 27.22 mL/min Estimated GFR (MDRD) 34 (>60) mL/min BUN/Creatinine Ratio 14.0 (14-18) Glucose 95 (70-99) mg/dL Calcium 9.4 (8.5-10.1) mg/dL Magnesium (1.8-2.4) mg/dL Total Bilirubin 0.3 (0.2-1.0) mg/dL AST 28 (15-37) U/L ALT 30 (14-59) U/L Alkaline Phosphatase 83 (46-116) U/L C-Reactive Protein 3.2 H* (<1.0) mg/dL Total Protein 7.2 (6.4-8.2) g/dl Albumin 3.7 (3.4-5.0) g/dl Globulin 3.5 gm/dL Albumin/Globulin Ratio 1.1 (1-2) 09/19/20 09/19/20 Range/Units 05:20 05:20 WBC 6.75 (3.98-10.04) K/mm3 RBC 3.22 L (3.98-5.22) M/mm3 Hgb 10.3 L (11.2-15.7) gm/dl Hct 31.4 L (34.1-44.9) % MCV 97.5 H (79.4-94.8) fl MCH 32.0 (25.6-32.2) pg MCHC 32.8 (32.2-35.5) g/dl RDW Std Deviation 46.6 H (36.4-46.3) fL Plt Count 294 (182-369) K/mm3 MPV 9.1 L (9.4-12.3) fl Neut % (Auto) 60.3 (34.0-71.1) % Lymph % (Auto) 16.9 L (19.3-51.7) % [place] % (Auto) 14.2 H (4.7-12.5) % Eos % (Auto) 7.3 H (0.7-5.8) Baso % (Auto) 1.3 H (0.1-1.2) % Neut # (Auto) 4.07 (1.56-6.13) K/mm3 Lymph # (Auto) 1.14 L (1.18-3.74) K/mm3 [place] # (Auto) 0.96 H (0.24-0.36) K/mm3 Eos # (Auto) 0.49 H (0.04-0.36) K/mm3 Baso # (Auto) 0.09 H (0.01-0.08) K/mm3 Manual Slide Review Abnormal smear Sodium 135 L (136-145) mEq/L Potassium 4.8 (3.5-5.1) mEq/L Chloride 101 (98-107) mEq/L Carbon Dioxide 24 (21-32) mEq/L Anion Gap 14.8 (5-15) BUN 16 (7-18) mg/dL Creatinine 1.2 H (0.55-1.02) mg/dL Est Cr Clr Drug Dosing 34.02 mL/min Estimated GFR (MDRD) 44 (>60) mL/min BUN/Creatinine Ratio 13.3 L (14-18) Glucose 86 (70-99) mg/dL Calcium 8.6 (8.5-10.1) mg/dL Magnesium 1.8 (1.8-2.4) mg/dL Total Bilirubin 0.2 (0.2-1.0) mg/dL AST 20 (15-37) U/L ALT 23 (14-59) U/L Alkaline Phosphatase 70 (46-116) U/L C-Reactive Protein 2.1 H* (<1.0) mg/dL Total Protein 6.0 L (6.4-8.2) g/dl Albumin 2.9 L (3.4-5.0) g/dl Globulin 3.1 gm/dL Albumin/Globulin Ratio 0.9 L (1-2) Result Diagrams: 09/19/20 05:20 09/19/20 05:20 Sepsis Event Note - Focused Exam Vital Signs: Vital Signs Temp Temp Pulse Resp BP BP Pulse Ox 09/19/20 08:33 71 141/64 H 09/19/20 07:38 36.4 C 71 20 141/64 H 93 L 09/19/20 06:09 73 92 L 09/19/20 04:00 36.7 C 18 124/70 Orders Last 24hrs: Active Orders 24 hr Category Date Time Status Patient Status [ADT] Routine ADT 09/18/20 14:43 Active Consult to Case Management/Professor Of Languages [CONS] Cons 09/18/20 15:45 Active Routine Consult to Physician [CONS] Routine Cons 09/18/20 15:45 Active OT Evaluation and Treatment [CONS] Routine Cons 09/18/20 15:46 Active PT Evaluation and Treatment [CONS] Routine Cons 09/18/20 15:46 Active CULTURE, ANAEROBE & AEROBE [MREF] Routine Lab 09/18/20 14:25 Received Acetaminophen [TylenoL] Med 09/18/20 15:45 Active 650 mg PO Q4H PRN Aspirin [Halfprin] Med 09/19/20 09:00 Active 81 mg PO DAILY Calcium Carbonate/Vitamin D3 [Calcium Carbonate/Vitamin Med 09/19/20 07:00 Active D 600 MG-200 Unit] 1 tab PO TIDMEALS Divalproex Sodium Med 09/19/20 09:00 Active 250 mg PO DAILY Docusate Sodium [Colace] Med 09/18/20 15:45 Active 100 mg PO Q12H PRN Folic Acid Med 09/19/20 09:00 Active 1 mg PO DAILY Furosemide [Lasix] Med 09/19/20 09:00 Active 10 mg PO DAILY LORazepam [Ativan] Med 09/19/20 09:00 Active 0.5 mg PO DAILY Levothyroxine [Synthroid] Med 09/19/20 06:00 Active 100 mcg PO ACBREAKFAST Magnesium Oxide Med 09/19/20 09:00 Active 400 mg PO DAILY Meloxicam [Mobic] Med 09/19/20 09:00 Active 15 mg PO DAILY Metoprolol Succinate [Toprol XL] Med 09/19/20 09:00 Active 50 mg PO DAILY Ondansetron [Zofran] Med 09/18/20 15:45 Active 4 mg IV Q6H PRN Pantoprazole [ProTONIX] Med 09/19/20 06:00 Active 40 mg PO BIDAC Pharmacy to Dose - Vancomycin Med 09/18/20 16:00 Active 0 dose .XX ASDIRECTED PRN Rosuvastatin [Crestor] Med 09/19/20 21:00 Active 20 mg PO BEDTIME Sodium Chloride 0.9% [Saline Flush] Med 09/18/20 12:45 Active 10 ml FLUSH ASDIRECTED PRN Vancomycin [Vancocin] 1 gm Med 09/20/20 14:00 Active Sodium Chloride 0.9% [Normal Saline (AdvBag)] 250 ml IV Q48H amLODIPine [Norvasc] Med 09/19/20 09:00 Active 5 mg PO DAILY Peripheral IV Insertion Adult [OM.PC] Stat Ot 09/18/20 12:45 Ordered Schedule Procedure [COMM] Stat Ot 09/18/20 13:47 Ordered Wound Care Education [Wound Management Education] [OM. Oth 09/18/20 15:47 Ordered PC] Routine Resuscitation Status Routine Resus Stat 09/18/20 15:34 Ordered Medication Orders Acetaminophen (Acetaminophen 325 Mg Tab) 650 mg PO Q4H PRN PRN Reason: Pain (Mild 1-3)/fever Last Admin: 09/18/20 20:27 Dose: 650 mg Documented by: KRISTINA Amlodipine Besylate (Amlodipine 5 Mg Tab) 5 mg PO DAILY [facility] Last Admin: 09/19/20 08:33 Dose: 5 mg Documented by: CLOTILDE Aspirin (Aspirin 81 Mg Tab.Ec) 81 mg PO DAILY [facility] Last Admin: 09/19/20 08:32 Dose: 81 mg Documented by: CLOTILDE Calcium Carbonate (Calcium Carbonate/Vitamin D3 600 Mg-200 Units Tab) 1 tab PO TIDMEALS [facility] Last Admin: 09/19/20 06:37 Dose: Not Given Documented by: KRISTINA Divalproex Sodium (Divalproex Sodium Delayed-Release 250 Mg Tab.Cr) 250 mg PO DAILY [facility] Last Admin: 09/19/20 08:33 Dose: 250 mg Documented by: CLOTILDE Docusate Sodium (Docusate Sodium 100 Mg Cap) 100 mg PO Q12H PRN PRN Reason: Constipation Folic Acid (Folic Acid 1 Mg Tab) 1 mg PO DAILY [facility] Last Admin: 09/19/20 08:33 Dose: 1 mg Documented by: CLOTILDE Furosemide (Furosemide 20 Mg Tab) 10 mg PO DAILY [facility] Last Admin: 09/19/20 08:32 Dose: 10 mg Documented by: CLOTILDE Vancomycin HCl 1 gm/ Sodium (Chloride) 250 mls @ 250 mls/hr IV Q48H [facility] Levothyroxine Sodium (Levothyroxine 100 Mcg Tab) 100 mcg PO ACBREAKFAST [facility] Last Admin: 09/19/20 06:37 Dose: Not Given Documented by: KRISTINA Lorazepam (Lorazepam 0.5 Mg Tab) 0.5 mg PO DAILY [facility] Last Admin: 09/19/20 08:33 Dose: 0.5 mg Documented by: CLOTILDE Magnesium Oxide (Magnesium Oxide 400 Mg Tab) 400 mg PO DAILY [facility] Last Admin: 09/19/20 08:33 Dose: 400 mg Documented by: CLOTILDE Meloxicam (Meloxicam 7.5 Mg Tab) 15 mg PO DAILY [facility] Last Admin: 09/19/20 08:33 Dose: 15 mg Documented by: CLOTILDE Metoprolol Succinate (Metoprolol Succinate 50 Mg Tab.Er) 50 mg PO DAILY [facility] Last Admin: 09/19/20 08:33 Dose: 50 mg Documented by: CLOTILDE Ondansetron HCl (Ondansetron 4 Mg/2 Ml Sdv) 4 mg IV Q6H PRN PRN Reason: Nausea/Vomiting Pantoprazole Sodium (Pantoprazole 40 Mg Tab.Cr) 40 mg PO BIDAC [facility] Last Admin: 09/19/20 06:35 Dose: Not Given Documented by: KRISTINA Rosuvastatin Calcium (Rosuvastatin 10 Mg Tab) 20 mg PO BEDTIME [facility] Sodium Chloride (Sodium Chloride 0.9% 10 Ml Syringe) 10 ml FLUSH ASDIRECTED PRN PRN Reason: Keep Vein Open Last Admin: 09/18/20 13:04 Dose: 10 ml Documented by: PIOTR Vancomycin HCl (Pharmacy To Dose - Vancomycin) 0 dose .XX ASDIRECTED PRN PRN Reason: RX TO DOSE VANCOMYCIN Assessment/Plan Comment:: I have seen and examined the patient independently of Jaret Cherry PA-C, and have reviewed the case with him. I have reviewed and agree with the plan and care as outlined by him. Please see orders.
--- NOTE | 2020-09-18 15:23 | PROC ---
DATE OF OPERATION: 09/18/2020 SURGEON: Marilyn Mathew MD PREOPERATIVE DIAGNOSES: Wound infection and dirty wound. POSTOPERATIVE DIAGNOSES: Wound infection and dirty wound. PROCEDURE: Excision and debridement of the wound of right lower leg. The size of the wound was 7 cm x 3 cm. ANESTHESIA: Monitored anesthesia care and local anesthetic consisting of 0.5% Marcaine with epinephrine. INDICATION AND CONSENT: Ms. Thompson is a 75-year-old female who had acute wound on the right lower leg 10 days ago. The patient went home and was managing the wound at home with just open to air, started having more redness and pain the last 3 or 4 days, went to see a provider today at [facility] and was noted to have wound infection and her wound appeared to be dirty. She was transferred here for debridement. I evaluated the patient, agreed with that, and we discussed risks, benefits, and alternatives, and informed consent was obtained. DETAILS OF PROCEDURE: The patient was taken to the procedure room, placed in supine position. Monitored anesthesia care was induced. The patient already had received vancomycin in the emergency department. A time-out was performed and the leg was prepped and draped in the usual sterile fashion. We began the procedure by examining the wound and ruling out abscess. We used a 20-gauge needle to explore the surroundings of the wound. There was no abscess and then a #15 blade was used to sharply excise the edges of the wound very superficially, not to remove the viable tissue, and then the wound bed was also sharply scraped to remove all the nonviable tissue. A small amount of tissue was sent for cultures and the end of the wound edges were bleeding and then the base consisted of pretty much fascia. The bone was not exposed. Once the wound was clean, it was rinsed with warm normal saline and packed with moist gauze and wrapped with a clean dry gauze. The patient will be admitted for IV antibiotics and dressing changes pending cultures. MMODAL /[id number] [id number]
[2020-09-18] MEDS ORDERED: Docusate Sodium 100 MG Cap PO PRN (15:45)
[2020-09-18] MEDS ORDERED: Acetaminophen 325 MG Tab PO PRN (15:45)
[2020-09-18] MEDS ORDERED: Ondansetron 4 MG/2 ML SDV IV PRN (15:45)
[2020-09-18] MEDS ORDERED: Sodium Chloride 0.9% 1,000 ML IV SCH (17:00)
[2020-09-18] MEDS ORDERED: Non-Formulary Medication 1 Each (Omeprazole 20 MG Cap.Cr) PO SCH (21:00)
[2020-09-19] MEDS ORDERED: Levothyroxine 100 MCG Tab PO SCH (06:00)
[2020-09-19] MEDS ORDERED: Pantoprazole 40 MG Tab.CR PO SCH (06:00)
[2020-09-19] MEDS ORDERED: Calcium Carbonate/Vitamin D3 600 MG-200 Units Tab PO SCH (07:00)
--- NOTE | 2020-09-19 07:45 | PCM.DCSUM1 ---
<Jaret Cherry - Last Filed: 09/19/20 09:27> Discharge Summary - Hospital Course HPI Initial Comments: This is a 35-year-old female who presents to ED on 09-18-2020 with a infected right lower leg wound. Patient reports about a week ago she was sitting on a picnic table and when she went to get up her leg became twisted and it resulting in a skin tear and skin flap laceration. She reports she presented to the clinic in [place], who took a look at her leg and told her that she needs surgical debridement. She was therefore sent here. In our ED temp is 97.6. Pulse 70. Respirations 18. Blood pressure 143/99. Pulse ox 97% on room air. Labs are obtained with a WBC of 9.07. Hemoglobin 10.9. Platelet 318,000. Neutrophils are normal at 70.2. Sodium is 133. Potassium 4.8. Chloride 97. Carbon dioxide 28. Anion gap 12.8. BUN is 21. Creatinine 1.5. GFR is 34. Glucose is 95. Calcium 9.4. Total bilirubin 0.3. AST is 28, ALT 30, alkaline phosphatase 83. CRP is 3.2. Albumin is 3.7. She started on [address] Mathew, general surgeon, is consulted in the ED and it is decided the patient will be brought to the operating room for surgical debridement. During debridement no abscesses are noted. Wound is wrapped. Dr. Mathew requests twice daily wet-to-dry dressings. Patient is subsequently admitted observation status for continued IV antibiotics and wound care. She carries a history of HLD, HTN, GERD, arthritis, anxiety and CKD. She is a full code. Her PCP is Carolina Weathers NP. Diagnosis: Stroke: No - Discharge Data Discharge Date: 09/19/20 (Admit date: 09/18/2020) Discharge Disposition: Home, Self-Care 01 Condition: Good - Referral to Home Health Primary Care Physician: Carolina Iniguez NP - Discharge Diagnosis/Problem(s) (1) S/P debridement SNOMED Code(s): 898776794, 289685353 ICD Code: Z98.890 - OTHER SPECIFIED POSTPROCEDURAL STATES Status: Acute Priority: High (2) HLD (hyperlipidemia) SNOMED Code(s): 53686026 ICD Code: E78.5 - HYPERLIPIDEMIA, UNSPECIFIED Status: Chronic Priority: Low Qualifiers: Hyperlipidemia type: unspecified Qualified Code(s): E78.5 - Hyperlipidemia, unspecified (3) HTN (hypertension) SNOMED Code(s): 77104846 ICD Code: I10 - ESSENTIAL (PRIMARY) HYPERTENSION Status: Chronic Priority: Medium Qualifiers: Hypertension type: unspecified Qualified Code(s): I10 - Essential (primary) hypertension (4) GERD (gastroesophageal reflux disease) SNOMED Code(s): 364139106 ICD Code: K21.9 - GASTRO-ESOPHAGEAL REFLUX DISEASE WITHOUT ESOPHAGITIS Status: Chronic Priority: Low Qualifiers: Esophagitis presence: esophagitis presence not specified Qualified Code(s): K21.9 - Gastro-esophageal reflux disease without esophagitis (5) CKD (chronic kidney disease) SNOMED Code(s): 601625480 ICD Code: N18.9 - CHRONIC KIDNEY DISEASE, UNSPECIFIED Status: Chronic Priority: Medium Qualifiers: Chronic kidney disease stage: stage 3 (moderate) Chronic kidney disease stage 3 subtype: stage 3b (GFR 30-44) Qualified Code(s): N18.32 - Chronic kidney disease, stage 3b (6) Arthritis SNOMED Code(s): 1643683 ICD Code: M19.90 - UNSPECIFIED OSTEOARTHRITIS, UNSPECIFIED SITE Status: Chronic Priority: Low (7) Anxiety SNOMED Code(s): 01496087 ICD Code: F41.9 - ANXIETY DISORDER, UNSPECIFIED Status: Chronic Priority: Low (8) Cellulitis SNOMED Code(s): 079363663 ICD Code: L03.90 - CELLULITIS, UNSPECIFIED Status: Acute Priority: High Qualifiers: Site of cellulitis: extremity Site of cellulitis of extremity: lower extremity Laterality: right Qualified Code(s): L03.115 - Cellulitis of right lower limb (9) Open leg wound SNOMED Code(s): 77816624 ICD Code: S81.809A - UNSPECIFIED OPEN WOUND, UNSPECIFIED LOWER LEG, INIT ENCNTR Status: Acute Priority: High Qualifiers: Encounter type: initial encounter Laterality: right Qualified Code(s): S81.801A - Unspecified open wound, right lower leg, initial encounter - Patient Summary/Data Consults: Consultations 09/18/20 15:45 Consult to Case Management/Lumber Chain Offbearer [CONS] Routine Consult to Physician [CONS] Routine 09/18/20 15:46 OT Evaluation and Treatment [CONS] Routine PT Evaluation and Treatment [CONS] Routine Labs Pending at D/C: Leg wound culture Recommended Follow-up Testing/Procedures: Care provider within 7 to 10 days of discharge, sooner if needed. -Patient has been instructed to perform twice daily wet-to-dry dressing changes. -Recommend repeat CBC, CMP, and magnesium at that visit. -Patient prescribed 8 days of 450 mg clindamycin. Follow-up with general surgery for wound monitoring in 10 days. This may be made locally or she may return to [place] see Dr. Mathew or his nurse practitioner at [facility]. Dr. Mathew is to perform the wound debridement. Hospital Course: This is a 75-year-old female presents to ED with infected right lower leg wound. She carries a history of HLD, HTN, GERD, arthritis, anxiety and CKD. She states approximately 10 days ago she was sitting on a park bench and when she went to get up her leg was wrapped around the metal leg of the table. She states she was not cut by anything sharp, however the tension cause a skin tear with a flap. She states she is prone to skin tears and has very thin skin. She presented to the clinic in [place] who recommended the patient come here. In the ED there is no leukocytosis and CRP was 3.2. Patient does have a known history of chronic kidney disease and was noted to have a creatinine 1.5 and a GFR 34. She started on 1 g of vancomycin, IV fluids and Dr. Mathew, general surgeon, was consulted in the ED who brought her back to the operating room for surgical debridement. Wound was noted to be approximately 7 cm x 3 cm and there was an erythematous and warm region around it. This was demarcated by the crew up in [place] and had showed some improvement in erythema. No abscess was noted and wound was debrided and dressed. Dr. Mathew requested twice daily wet-to-dry dressing changes. Patient was admitted for observation. She has been doing well. She was evaluated by physical therapy who recommended patient discharged home with no services. There were no concerns of sepsis. Patient will be discharged on 450 mg 3 times daily clindamycin for 8 more days. She was instructed to take [id number] Tylenol as needed for pain. She was instructed to return to emergency room or contact her primary care provider should symptoms return or worsen. She was educated that concerns would be fever, chills, nausea, vomiting, worsening redness, or streaking up the leg. She should follow-up with her primary care provider within 7 to 10 days of discharge, sooner if needed. Dr. Mathew requested patient have surgical follow-up at approximately 10 days of discharge. This may be obtained locally in [place] or patient may return here to see Dr. Mathew or his nurse pr actitioner. Wound cultures are still pending and patient will be contacted if antibiotics need to be changed. Patient discharged home today. All home medications were continued. - Patient Instructions Diet: Usual Diet as Tolerated Activity: As Tolerated Showering/Bathing: May Shower Notify Provider of: Fever, Increased Pain, Nausea and/or Vomiting Other/Special Instructions: Follow-up with your primary care provider within 7 to 10 days of discharge, sooner if needed. Follow-up with a general surgeon either locally in [place], or you may return to [place] to see Dr. Mathew or his nurse practitioner. He is the one who performed your debrideme nt. Resume home medications as directed. Your wound cultures are still pending and it will take several days to get results. We will contact you if your antibiotic needs to be changed. You may take [id number] Tylenol as needed for pain. Follow hydrogen power plant manager dosing as directed. You were prescribed an antibiotic for your wound. Take this as directed until completed, even if you feel 100% better. Change your dressings twice a day as directed by nursing. They will educate you on how to do this. Should symptoms return or worsen return to the emergency room or contact your primary care provider. Symptoms of concern would be fever, nausea, vomiting, chills, red streaking up your leg, or generalized feeling of unwell. - Discharge Plan *PRESCRIPTION DRUG MONITORING PROGRAM REVIEWED*: No *COPY OF PRESCRIPTION DRUG MONITORING REPORT IN PATIENT [place]: No Prescriptions/Med Rec: clindamycin HCL [Cleocin HCl] 450 mg PO TID #72 capsule Home Medications: Home Meds Aspirin 81 mg PO DAILY 09/18/20 [History] Calcium Citrate/Vitamin D3 [Calcium Citrate - Vit D Caplet] 1 each PO TID 09/18/20 [History] Divalproex Sodium [Depakote ER] 250 mg PO DAILY 09/18/20 [History] Folic Acid 1 mg PO DAILY 09/18/20 [History] Furosemide [Lasix] 10 mg PO DAILY 09/18/20 [History] LORazepam [Ativan] 0.5 mg PO DAILY 09/18/20 [History] Levothyroxine [Synthroid] 100 mcg PO ACBREAKFAST 09/18/20 [History] Magnesium Oxide [Magnesium] 400 mg PO DAILY 09/18/20 [History] Meloxicam 15 mg PO DAILY 09/18/20 [History] Metoprolol Succinate 50 mg PO DAILY 09/18/20 [History] Omeprazole 20 mg PO BID 09/18/20 [History] amLODIPine [Norvasc] 5 mg PO DAILY 09/18/20 [History] atorvaSTATin [Lipitor] 80 mg PO BEDTIME 09/18/20 [History] Divalproex Sodium [Depakote] 250 mg PO DAILY 09/19/20 [History] clindamycin HCL [Cleocin HCl] 450 mg PO TID #72 capsule 09/19/20 [Rx] Oxygen Therapy Mode: Room Air Patient Handouts: Surgical Wound Debridement, Care After Forms: ED Department Discharge Referrals: Carolina Iniguez NP [Primary Care Provider] - 09/28/20 9:00 am (Please come 5-10 minutes prior to the appointment to register.) - Discharge Summary/Plan Comment DC Time >30 min.: No - General Info Date of Service: 09/19/20 Admission Dx/Problem (Free Text: Admission Diagnosis/Problem Admission Diagnosis/Problem Wound of lower extremity Functional Status: Reports: Pain Controlled, Tolerating Diet, Ambulating, Urinating. Denies: New Symptoms - Review of Systems General: Reports: No Symptoms. Denies: Fever, Weakness, Fatigue, Malaise, Chills HEENT: Reports: No Symptoms. Denies: Headaches, Sore Throat Pulmonary: Reports: No Symptoms. Denies: Shortness of Breath, Cough, Sputum, Wheezing Cardiovascular: Reports: No Symptoms. Denies: Chest Pain, Palpitations, Dyspnea on Exertion, Edema Gastrointestinal: Reports: No Symptoms. Denies: Abdominal Pain, Constipation, Diarrhea, Nausea, Vomiting Genitourinary: Reports: No Symptoms. Denies: Pain Musculoskeletal: Reports: No Symptoms Skin: Reports: Other (Mild improving pain to wound on right anterior leg.) Neurological: Reports: No Symptoms. Denies: Confusion, Dizziness, Headache, Numbness, Pre-Existing Deficit, Syncope, Tingling, Difficulty Walking, Weakness, Gait Disturbance Psychiatric: Reports: No Symptoms - Patient Data Vitals - Most Recent: Last Vital Signs Temp 98.1 F 09/19/20 04:00 Pulse 73 09/19/20 06:09 Resp 18 09/19/20 04:00 BP 124/70 09/19/20 04:00 Pulse Ox 92 L 09/19/20 06:09 Weight - Most Recent: 68.946 kg I&O - Last 24 hours: Intake & Output 09/18/20 09/19/20 09/19/20 22:59 06:59 14:59 Intake Total 250 700 Output Total 1100 Balance 250 -400 Lab Results - Last 24 hrs: Laboratory Results - last 24 hr 09/18/20 09/18/20 09/18/20 Range/Units 12:55 12:55 12:55 WBC 9.07 (3.98-10.04) K/mm3 RBC 3.38 L (3.98-5.22) M/mm3 Hgb 10.9 L (11.2-15.7) gm/dl Hct 32.6 L (34.1-44.9) % MCV 96.4 H (79.4-94.8) fl MCH 32.2 (25.6-32.2) pg MCHC 33.4 (32.2-35.5) g/dl RDW Std Deviation 45.1 (36.4-46.3) fL Plt Count 318 (182-369) K/mm3 MPV 9.0 L (9.4-12.3) fl Neut % (Auto) 70.2 (34.0-71.1) % Lymph % (Auto) 13.8 L (19.3-51.7) % Snyder % (Auto) 10.7 (4.7-12.5) % Eos % (Auto) 4.7 (0.7-5.8) Baso % (Auto) 0.6 (0.1-1.2) % Neut # (Auto) 6.37 H (1.56-6.13) K/mm3 Lymph # (Auto) 1.25 (1.18-3.74) K/mm3 Snyder # (Auto) 0.97 H (0.24-0.36) K/mm3 Eos # (Auto) 0.43 H (0.04-0.36) K/mm3 Baso # (Auto) 0.05 (0.01-0.08) K/mm3 Manual Slide Review Abnormal smear Sodium 133 L (136-145) mEq/L Potassium 4.8 (3.5-5.1) mEq/L Chloride 97 L (98-107) mEq/L Carbon Dioxide 28 (21-32) mEq/L Anion Gap 12.8 (5-15) BUN 21 H (7-18) mg/dL Creatinine 1.5 H (0.55-1.02) mg/dL Est Cr Clr Drug Dosing 27.22 mL/min Estimated GFR (MDRD) 34 (>60) mL/min BUN/Creatinine Ratio 14.0 (14-18) Glucose 95 (70-99) mg/dL Calcium 9.4 (8.5-10.1) mg/dL Magnesium (1.8-2.4) mg/dL Total Bilirubin 0.3 (0.2-1.0) mg/dL AST 28 (15-37) U/L ALT 30 (14-59) U/L Alkaline Phosphatase 83 (46-116) U/L C-Reactive Protein 3.2 H* (<1.0) mg/dL Total Protein 7.2 (6.4-8.2) g/dl Albumin 3.7 (3.4-5.0) g/dl Globulin 3.5 gm/dL Albumin/Globulin Ratio 1.1 (1-2) 09/19/20 09/19/20 Range/Units 05:20 05:20 WBC 6.75 (3.98-10.04) K/mm3 RBC 3.22 L (3.98-5.22) M/mm3 Hgb 10.3 L (11.2-15.7) gm/dl Hct 31.4 L (34.1-44.9) % MCV 97.5 H (79.4-94.8) fl MCH 32.0 (25.6-32.2) pg MCHC 32.8 (32.2-35.5) g/dl RDW Std Deviation 46.6 H (36.4-46.3) fL Plt Count 294 (182-369) K/mm3 MPV 9.1 L (9.4-12.3) fl Neut % (Auto) 60.3 (34.0-71.1) % Lymph % (Auto) 16.9 L (19.3-51.7) % Snyder % (Auto) 14.2 H (4.7-12.5) % Eos % (Auto) 7.3 H (0.7-5.8) Baso % (Auto) 1.3 H (0.1-1.2) % Neut # (Auto) 4.07 (1.56-6.13) K/mm3 Lymph # (Auto) 1.14 L (1.18-3.74) K/mm3 Snyder # (Auto) 0.96 H (0.24-0.36) K/mm3 Eos # (Auto) 0.49 H (0.04-0.36) K/mm3 Baso # (Auto) 0.09 H (0.01-0.08) K/mm3 Manual Slide Review Sodium 135 L (136-145) mEq/L Potassium 4.8 (3.5-5.1) mEq/L Chloride 101 (98-107) mEq/L Carbon Dioxide 24 (21-32) mEq/L Anion Gap 14.8 (5-15) BUN 16 (7-18) mg/dL Creatinine 1.2 H (0.55-1.02) mg/dL Est Cr Clr Drug Dosing 34.02 mL/min Estimated GFR (MDRD) 44 (>60) mL/min BUN/Creatinine Ratio 13.3 L (14-18) Glucose 86 (70-99) mg/dL Calcium 8.6 (8.5-10.1) mg/dL Magnesium 1.8 (1.8-2.4) mg/dL Total Bilirubin 0.2 (0.2-1.0) mg/dL AST 20 (15-37) U/L ALT 23 (14-59) U/L Alkaline Phosphatase 70 (46-116) U/L C-Reactive Protein 2.1 H* (<1.0) mg/dL Total Protein 6.0 L (6.4-8.2) g/dl Albumin 2.9 L (3.4-5.0) g/dl Globulin 3.1 gm/dL Albumin/Globulin Ratio 0.9 L (1-2) Med Orders - Current: Current Medications Acetaminophen (Acetaminophen 325 Mg Tab) 650 mg PO Q4H PRN PRN Reason: Pain (Mild 1-3)/fever Last Admin: 09/18/20 20:27 Dose: 650 mg Documented by: Amlodipine Besylate (Amlodipine 5 Mg Tab) 5 mg PO DAILY [facility] Aspirin (Aspirin 81 Mg Tab.Ec) 81 mg PO DAILY [facility] Calcium Carbonate (Calcium Carbonate/Vitamin D3 600 Mg-200 Units Tab) 1 tab PO TIDMEALS [facility] Last Admin: 09/19/20 06:37 Dose: Not Given Documented by: Divalproex Sodium (Divalproex Sodium Delayed-Release 250 Mg Tab.Cr) 250 mg PO DAILY [facility] Docusate Sodium (Docusate Sodium 100 Mg Cap) 100 mg PO Q12H PRN PRN Reason: Constipation Folic Acid (Folic Acid 1 Mg Tab) 1 mg PO DAILY [facility] Furosemide (Furosemide 20 Mg Tab) 10 mg PO DAILY [facility] Vancomycin HCl 1 gm/ Sodium (Chloride) 250 mls @ 250 mls/hr IV Q48H [facility] Levothyroxine Sodium (Levothyroxine 100 Mcg Tab) 100 mcg PO ACBREAKFAST [facility] Last Admin: 09/19/20 06:37 Dose: Not Given Documented by: Lorazepam (Lorazepam 0.5 Mg Tab) 0.5 mg PO DAILY [facility] Magnesium Oxide (Magnesium Oxide 400 Mg Tab) 400 mg PO DAILY [facility] Meloxicam (Meloxicam 7.5 Mg Tab) 15 mg PO DAILY [facility] Metoprolol Succinate (Metoprolol Succinate 50 Mg Tab.Er) 50 mg PO DAILY [facility] Ondansetron HCl (Ondansetron 4 Mg/2 Ml Sdv) 4 mg IV Q6H PRN PRN Reason: Nausea/Vomiting Pantoprazole Sodium (Pantoprazole 40 Mg Tab.Cr) 40 mg PO BIDAC [facility] Last Admin: 09/19/20 06:35 Dose: Not Given Documented by: Rosuvastatin Calcium (Rosuvastatin 10 Mg Tab) 20 mg PO BEDTIME [facility] Sodium Chloride (Sodium Chloride 0.9% 10 Ml Syringe) 10 ml FLUSH ASDIRECTED PRN PRN Reason: Keep Vein Open Last Admin: 09/18/20 13:04 Dose: 10 ml Documented by: Vancomycin HCl (Pharmacy To Dose - Vancomycin) 0 dose .XX ASDIRECTED PRN PRN Reason: RX TO DOSE VANCOMYCIN Discontinued Medications Bupivacaine HCl/Epinephrine Bitart (Bupivacaine 0.5%/Epinephrine 1:200,000 50 Ml Mdv) Confirm Administered Dose 50 ml .ROUTE .STK-MED ONE Stop: 09/18/20 14:00 Last Admin: 09/18/20 14:17 Dose: 20 ml Documented by: Fentanyl (Fentanyl 100 Mcg/2 Ml Sdv) Confirm Administered Dose 100 mcg .ROUTE .STK-MED ONE Stop: 09/18/20 13:56 Vancomycin HCl 1 gm/Vancomycin HCl 250 mg/ Sodium Chloride 250 mls @ 166.667 mls/hr IV ONETIME ONE Stop: 09/18/20 15:14 Last Admin: 09/18/20 13:45 Dose: 166.667 mls/hr Documented by: Lidocaine HCl (Xylocaine-Mpf 1%) Confirm Administered Dose 4 mls @ as directed .ROUTE .STK-MED ONE Stop: 09/18/20 13:56 Sodium Chloride (Normal Saline) 1,000 mls @ 75 mls/hr IV ASDIRECTED JEREMY Stop: 09/19/20 06:19 Last Admin: 09/18/20 23:50 Dose: 75 mls/hr Documented by: Midazolam HCl (Midazolam 1 Mg/Ml 2 Ml Sdv) Confirm Administered Dose 2 mg .ROUTE .STK-MED ONE Stop: 09/18/20 13:56 Ondansetron HCl (Ondansetron 4 Mg/2 Ml Sdv) Confirm Administered Dose 4 mg .ROUTE .STK-MED ONE Stop: 09/18/20 13:56 Propofol (Propofol 200 Mg/20 Ml Sdv) Confirm Administered Dose 200 mg .ROUTE .ST-MED ONE Stop: 09/18/20 13:56 - Exam Quality Assessment: Reports: DVT Prophylaxis. Denies: Supplemental Oxygen, Urine Catheter General: Reports: Alert, Oriented, Cooperative, No Acute Distress HEENT: Reports: Pupils Equal, Pupils Reactive, Mucous Membr. Moist/[place] Neck: Reports: Supple, Trachea Midline Lungs: Reports: Clear to Auscultation, Normal Respiratory Effort Cardiovascular: Reports: Regular Rate, Regular Rhythm GI/Abdominal Exam: Normal Bowel Sounds, Soft, Non-Tender, No Distention (Female) Exam: Deferred Rectal (Female) Exam: Deferred Extremities: Normal Range of Motion, No Pedal Edema, Normal Capillary Refill, Leg Pain (Secondary to leg wound on right anterior lower leg.) Skin: Reports: Warm, Dry, Intact Wound/Incisions: Reports: Healing Well, Dressing Dry and Intact, No Drainage, Erythema Improving Neurological: Reports: No New Focal Deficit Psy/Mental Status: Reports: Alert, Normal Affect, Normal Mood <Carlos Manuel Zaidi - Last Filed: 09/19/20 12:19> Discharge Summary - Referral to Home Health Primary Care Physician: Carolina Iniguez NP - Patient Summary/Data Consults: Consultations 09/18/20 15:45 Consult to Case Management/Lumber Chain Offbearer [CONS] Routine Consult to Physician [CONS] Routine 09/18/20 15:46 OT Evaluation and Treatment [CONS] Routine PT Evaluation and Treatment [CONS] Routine Hospital Course: I have seen and examined the patient independently of Jaret Cherry PA-C, and have reviewed the case with him. I have reviewed and agree with the plan and care as outlined by him. Please see orders. - Patient Data Vitals - Most Recent: Last Vital Signs Temp 36.4 C 09/19/20 07:38 Pulse 71 09/19/20 08:33 Resp 20 09/19/20 07:38 BP 141/64 H 09/19/20 08:33 Pulse Ox 93 L 09/19/20 07:38 I&O - Last 24 hours: Intake & Output 09/18/20 09/19/20 09/19/20 22:59 06:59 14:59 Intake Total 450 700 Output Total 1100 Balance 450 -400 Lab Results - Last 24 hrs: Laboratory Results - last 24 hr 09/18/20 09/18/20 09/18/20 Range/Units 12:55 12:55 12:55 WBC 9.07 (3.98-10.04) K/mm3 RBC 3.38 L (3.98-5.22) M/mm3 Hgb 10.9 L (11.2-15.7) gm/dl Hct 32.6 L (34.1-44.9) % MCV 96.4 H (79.4-94.8) fl MCH 32.2 (25.6-32.2) pg MCHC 33.4 (32.2-35.5) g/dl RDW Std Deviation 45.1 (36.4-46.3) fL Plt Count 318 (182-369) K/mm3 MPV 9.0 L (9.4-12.3) fl Neut % (Auto) 70.2 (34.0-71.1) % Lymph % (Auto) 13.8 L (19.3-51.7) % Snyder % (Auto) 10.7 (4.7-12.5) % Eos % (Auto) 4.7 (0.7-5.8) Baso % (Auto) 0.6 (0.1-1.2) % Neut # (Auto) 6.37 H (1.56-6.13) K/mm3 Lymph # (Auto) 1.25 (1.18-3.74) K/mm3 Snyder # (Auto) 0.97 H (0.24-0.36) K/mm3 Eos # (Auto) 0.43 H (0.04-0.36) K/mm3 Baso # (Auto) 0.05 (0.01-0.08) K/mm3 Manual Slide Review Abnormal smear Sodium 133 L (136-145) mEq/L Potassium 4.8 (3.5-5.1) mEq/L Chloride 97 L (98-107) mEq/L Carbon Dioxide 28 (21-32) mEq/L Anion Gap 12.8 (5-15) BUN 21 H (7-18) mg/dL Creatinine 1.5 H (0.55-1.02) mg/dL Est Cr Clr Drug Dosing 27.22 mL/min Estimated GFR (MDRD) 34 (>60) mL/min BUN/Creatinine Ratio 14.0 (14-18) Glucose 95 (70-99) mg/dL Calcium 9.4 (8.5-10.1) mg/dL Magnesium (1.8-2.4) mg/dL Total Bilirubin 0.3 (0.2-1.0) mg/dL AST 28 (15-37) U/L ALT 30 (14-59) U/L Alkaline Phosphatase 83 (46-116) U/L C-Reactive Protein 3.2 H* (<1.0) mg/dL Total Protein 7.2 (6.4-8.2) g/dl Albumin 3.7 (3.4-5.0) g/dl Globulin 3.5 gm/dL Albumin/Globulin Ratio 1.1 (1-2) 09/19/20 09/19/20 Range/Units 05:20 05:20 WBC 6.75 (3.98-10.04) K/mm3 RBC 3.22 L (3.98-5.22) M/mm3 Hgb 10.3 L (11.2-15.7) gm/dl Hct 31.4 L (34.1-44.9) % MCV 97.5 H (79.4-94.8) fl MCH 32.0 (25.6-32.2) pg MCHC 32.8 (32.2-35.5) g/dl RDW Std Deviation 46.6 H (36.4-46.3) fL Plt Count 294 (182-369) K/mm3 MPV 9.1 L (9.4-12.3) fl Neut % (Auto) 60.3 (34.0-71.1) % Lymph % (Auto) 16.9 L (19.3-51.7) % Snyder % (Auto) 14.2 H (4.7-12.5) % Eos % (Auto) 7.3 H (0.7-5.8) Baso % (Auto) 1.3 H (0.1-1.2) % Neut # (Auto) 4.07 (1.56-6.13) K/mm3 Lymph # (Auto) 1.14 L (1.18-3.74) K/mm3 Snyder # (Auto) 0.96 H (0.24-0.36) K/mm3 Eos # (Auto) 0.49 H (0.04-0.36) K/mm3 Baso # (Auto) 0.09 H (0.01-0.08) K/mm3 Manual Slide Review Abnormal smear Sodium 135 L (136-145) mEq/L Potassium 4.8 (3.5-5.1) mEq/L Chloride 101 (98-107) mEq/L Carbon Dioxide 24 (21-32) mEq/L Anion Gap 14.8 (5-15) BUN 16 (7-18) mg/dL Creatinine 1.2 H (0.55-1.02) mg/dL Est Cr Clr Drug Dosing 34.02 mL/min Estimated GFR (MDRD) 44 (>60) mL/min BUN/Creatinine Ratio 13.3 L (14-18) Glucose 86 (70-99) mg/dL Calcium 8.6 (8.5-10.1) mg/dL Magnesium 1.8 (1.8-2.4) mg/dL Total Bilirubin 0.2 (0.2-1.0) mg/dL AST 20 (15-37) U/L ALT 23 (14-59) U/L Alkaline Phosphatase 70 (46-116) U/L C-Reactive Protein 2.1 H* (<1.0) mg/dL Total Protein 6.0 L (6.4-8.2) g/dl Albumin 2.9 L (3.4-5.0) g/dl Globulin 3.1 gm/dL Albumin/Globulin Ratio 0.9 L (1-2) Med Orders - Current: Current Medications Acetaminophen (Acetaminophen 325 Mg Tab) 650 mg PO Q4H PRN PRN Reason: Pain (Mild 1-3)/fever Last Admin: 09/18/20 20:27 Dose: 650 mg Documented by: Amlodipine Besylate (Amlodipine 5 Mg Tab) 5 mg PO DAILY [facility] Last Admin: 09/19/20 08:33 Dose: 5 mg Documented by: Aspirin (Aspirin 81 Mg Tab.Ec) 81 mg PO DAILY [facility] Last Admin: 09/19/20 08:32 Dose: 81 mg Documented by: Calcium Carbonate (Calcium Carbonate/Vitamin D3 600 Mg-200 Units Tab) 1 tab PO TIDMEALS [facility] Last Admin: 09/19/20 06:37 Dose: Not Given Documented by: Divalproex Sodium (Divalproex Sodium Delayed-Release 250 Mg Tab.Cr) 250 mg PO DAILY [facility] Last Admin: 09/19/20 08:33 Dose: 250 mg Documented by: Docusate Sodium (Docusate Sodium 100 Mg Cap) 100 mg PO Q12H PRN PRN Reason: Constipation Folic Acid (Folic Acid 1 Mg Tab) 1 mg PO DAILY [facility] Last Admin: 09/19/20 08:33 Dose: 1 mg Documented by: Furosemide (Furosemide 20 Mg Tab) 10 mg PO DAILY [facility] Last Admin: 09/19/20 08:32 Dose: 10 mg Documented by: Vancomycin HCl 1 gm/ Sodium (Chloride) 250 mls @ 250 mls/hr IV Q48H [facility] Levothyroxine Sodium (Levothyroxine 100 Mcg Tab) 100 mcg PO ACBREAKFAST [facility] Last Admin: 09/19/20 06:37 Dose: Not Given Documented by: Lorazepam (Lorazepam 0.5 Mg Tab) 0.5 mg PO DAILY [facility] Last Admin: 09/19/20 08:33 Dose: 0.5 mg Documented by: Magnesium Oxide (Magnesium Oxide 400 Mg Tab) 400 mg PO DAILY [facility] Last Admin: 09/19/20 08:33 Dose: 400 mg Documented by: Meloxicam (Meloxicam 7.5 Mg Tab) 15 mg PO DAILY [facility] Last Admin: 09/19/20 08:33 Dose: 15 mg Documented by: Metoprolol Succinate (Metoprolol Succinate 50 Mg Tab.Er) 50 mg PO DAILY [facility] Last Admin: 09/19/20 08:33 Dose: 50 mg Documented by: Ondansetron HCl (Ondansetron 4 Mg/2 Ml Sdv) 4 mg IV Q6H PRN PRN Reason: Nausea/Vomiting Pantoprazole Sodium (Pantoprazole 40 Mg Tab.Cr) 40 mg PO BIDAC [facility] Last Admin: 09/19/20 06:35 Dose: Not Given Documented by: Rosuvastatin Calcium (Rosuvastatin 10 Mg Tab) 20 mg PO BEDTIME [facility] Sodium Chloride (Sodium Chloride 0.9% 10 Ml Syringe) 10 ml FLUSH ASDIRECTED PRN PRN Reason: Keep Vein Open Last Admin: 09/18/20 13:04 Dose: 10 ml Documented by: Vancomycin HCl (Pharmacy To Dose - Vancomycin) 0 dose .XX ASDIRECTED PRN PRN Reason: RX TO DOSE VANCOMYCIN Discontinued Medications Bupivacaine HCl/Epinephrine Bitart (Bupivacaine 0.5%/Epinephrine 1:200,000 50 Ml Mdv) Confirm Administered Dose 50 ml .ROUTE .STK-MED ONE Stop: 09/18/20 14:00 Last Admin: 09/18/20 14:17 Dose: 20 ml Documented by: Fentanyl (Fentanyl 100 Mcg/2 Ml Sdv) Confirm Administered Dose 100 mcg .ROUTE .STK-MED ONE Stop: 09/18/20 13:56 Vancomycin HCl 1 gm/Vancomycin HCl 250 mg/ Sodium Chloride 250 mls @ 166.667 mls/hr IV ONETIME ONE Stop: 09/18/20 15:14 Last Admin: 09/18/20 13:45 Dose: 166.667 mls/hr Documented by: Lidocaine HCl (Xylocaine-Mpf 1%) Confirm Administered Dose 4 mls @ as directed .ROUTE .STK-MED ONE Stop: 09/18/20 13:56 Sodium Chloride (Normal Saline) 1,000 mls @ 75 mls/hr IV ASDIRECTED JEREMY Stop: 09/19/20 06:19 Last Admin: 09/18/20 23:50 Dose: 75 mls/hr Documented by: Midazolam HCl (Midazolam 1 Mg/Ml 2 Ml Sdv) Confirm Administered Dose 2 mg .ROUTE .STK-MED ONE Stop: 09/18/20 13:56 Ondansetron HCl (Ondansetron 4 Mg/2 Ml Sdv) Confirm Administered Dose 4 mg . ROUTE .STK-MED ONE Stop: 09/18/20 13:56 Propofol (Propofol 200 Mg/20 Ml Sdv) Confirm Administered Dose 200 mg .ROUTE .STK-MED ONE Stop: 09/18/20 13:56
[2020-09-19] MEDS ORDERED: amLODIPine 5 MG Tab PO SCH (09:00)
[2020-09-19] MEDS ORDERED: Furosemide 20 MG Tab PO SCH (09:00)
[2020-09-19] MEDS ORDERED: Metoprolol Succinate 50 MG Tab.ER PO SCH (09:00)
[2020-09-19] MEDS ORDERED: Meloxicam 7.5 MG Tab PO SCH (09:00)
[2020-09-19] MEDS ORDERED: LORazepam 0.5 MG Tab PO SCH (09:00)
[2020-09-19] MEDS ORDERED: Aspirin 81 MG Tab.EC PO SCH (09:00)
[2020-09-19] MEDS ORDERED: Magnesium Oxide 400 MG Tab PO SCH (09:00)
[2020-09-19] MEDS ORDERED: Divalproex Sodium Delayed-Release 250 MG Tab.CR PO SCH (09:00)
[2020-09-19] MEDS ORDERED: Folic Acid 1 MG Tab PO SCH (09:00)
[2020-09-19] MEDS ORDERED: Rosuvastatin 10 MG Tab PO SCH (21:00)
== END 2020-09-19 11:03 | disposition home or self-care (01) ==
LOC: JD.ED 12:13 → JD.SDS 13:51 → JD.MS 14:43
PROVIDERS: ADMIT Internal Medicine; ATTEND Internal Medicine
DX: S81.801A Unspecified open wound, right lower leg, initial encounter (principal); I12.9 Hypertensive chronic kidney disease with stage 1 through stage 4 chronic kidney disease, or unspecified chronic kidney disease; E78.5 Hyperlipidemia, unspecified; K21.9 Gastro-esophageal reflux disease without esophagitis; N18.32 Chronic kidney disease, stage 3b; L03.115 Cellulitis of right lower limb; E78.00 Pure hypercholesterolemia, unspecified; Z88.0 Allergy status to penicillin; Z79.82 Long term (current) use of aspirin; Z79.899 Other long term (current) drug therapy; Z87.891 Personal history of nicotine dependence
CPT/HCPCS: 11042; 11045; 36415; 80053; 83735; 85025; 86140; 87070; 87075; 87077; 87186; 87205; 96374; 99284; A9270; G0378; J2250; J2704; J3010; J3370; J3490; J7030; J7050; 00400; 99100; 99217; 99219; 99285; J2405